=== PATIENT | male | born 1955 | race African-American/Black ===

== ENCOUNTER 2018-01-22 02:01 | Inpatient (IN) | payer OTHER ==
[~2018-01-22] VITALS: Ht 182.9 cm; Wt 115.2 kg
[~2018-01-22 02:01] MED LIST: METF500T4
[2018-01-22] MEDS ORDERED: SODIUM CHLORIDE 0.9% 1,000 ML IV ONE (03:39)
[2018-01-22] MEDS ORDERED: LEVETIRACETAM 1000MG/100ML 100 ML IV ONE (03:45)
[2018-01-22 04:47] LABS: BASOPHILS % 0.4 % (0.0-2.0); EOSINOPHILS % 0.4 % (0.0-5.0); HEMATOCRIT. 41.1 % (42.0-52.0); MEAN CORPUSCULAR HEMOGLOBIN 33.8 pg (28.0-32.0); MEAN PLATELET VOLUME 8.9 fl (7.4-10.4); MONOCYTES % 7.1 % (2.0-8.0); NEUTROPHILS % 74.1 % (40.0-76.0); PLATELET 129 x1000/uL (130-400); RED BLOOD CELL COUNT 4.16 mill/uL (4.7-6.1); RED CELL DISTRIBUTION WIDTH 13.1 % (11.6-14.6)
[2018-01-22 04:48] LABS: CHLORIDE 101 mEq/L (98-107)
[2018-01-22 04:52] LABS: ETHANOL BLOOD < 10 mg/dL
[2018-01-22 05:01] LABS: CREATINE KINASE 125 IU/L (39-308)
[2018-01-22 05:07] LABS: INR 1.2; PROTHROMBIN TIME 12.3 sec (9.4-11.6)
[2018-01-22 05:08] LABS: AMMONIA 45 uMol/L (<32)
[2018-01-22] MEDS ORDERED: SODIUM CHLORIDE 0.9% 1000ML BAG (SEPSIS BOLUS) IV NR (05:15)
[2018-01-22] MEDS ORDERED: LEVOFLOXACIN 750MG PREMIX 150 ML IV NR (05:15)
[2018-01-22 06:44] LABS: CLARITY URINE CLOUDY (CLEAR); COLOR URINE DARK YELLOW (YELLOW); KETONES URINE TRACE (NEGATIVE); LEUKOCYTE ESTERASE URINE 3+ (NEGATIVE); NITRITE URINE POSITIVE (NEGATIVE); OCCULT BLOOD URINE 1+ (NEGATIVE); PROTEIN URINE 1+ (NEGATIVE); SPECIFIC GRAVITY URINE 1.025 (1.005-1.030)
[2018-01-22] MEDS ORDERED: ONDANSETRON HCL 4MG/2ML VIAL IV PRN (07:00)
[2018-01-22] MEDS ORDERED: DIPHENHYDRAMINE 50MG/ML VIAL IV PRN (07:00)
[2018-01-22] MEDS ORDERED: CLONIDINE 0.1MG TABLET PO PRN (07:00)
[2018-01-22] MEDS ORDERED: IPRATROPIUM/ALBUTEROL 0.5-3(2.5)MG/3ML NEB INH PRN (07:00)
[2018-01-22] MEDS ORDERED: DOCUSATE SODIUM 100MG CAPSULE PO PRN (07:00)
[2018-01-22] MEDS ORDERED: NA PHOS,M-B/NA PHOS,DI-BA ENEMA 118ML PR PRN (07:00)
[2018-01-22] MEDS ORDERED: GUAIFENESIN 200MG/10ML SUGAR FREE UDC PO PRN (07:00)
[2018-01-22] MEDS ORDERED: MAGNESIUM/ALUMINUM HYDROXIDE/SIMETHICONE 30ML UDC PO PRN (07:00)
[2018-01-22] MEDS ORDERED: LORAZEPAM 2MG/ML CPJ IV PRN (07:00)
[2018-01-22] MEDS ORDERED: HYDROMORPHONE HCL/PF 2MG/ML CPJ IV PRN (07:00)
[2018-01-22] MEDS ORDERED: HYDROCODONE/ACETAMINOPHEN 5/325MG TABLET PO PRN (07:00)
[2018-01-22] MEDS ORDERED: ACETAMINOPHEN 325MG TABLET PO PRN (07:00)
[2018-01-22 07:08] LABS: *AMPHETAMINES SCREEN URINE NEGATIVE (NEGATIVE); *BARBITURATES SCREEN URINE NEGATIVE (NEGATIVE)
[2018-01-22 07:09] LABS: *BENZODIAZEPINES SCREEN URINE NEGATIVE (NEGATIVE); *COCAINE SCREEN URINE PRESUMTIVE POSITIVE (NEGATIVE); CANNABINOID URINE SCREEN NEGATIVE (NEGATIVE); METHADONE URINE SCREEN NEGATIVE (NEGATIVE); OPIATES URINE SCREEN NEGATIVE (NEGATIVE); PHENCYCLIDINE URINE SCREEN NEGATIVE (NEGATIVE)
[2018-01-22 08:09] LABS: CHLORIDE 105 mEq/L (98-107)
[2018-01-22] MEDS ORDERED: ASPIRIN 81MG EC TABLET PO SCH ×2 (09:00→15:30)
[2018-01-22] MEDS ORDERED: ENOXAPARIN 40MG/0.4ML SYR SUBCUT SCH ×2 (11:00→15:30)
[2018-01-22 15:21] VITALS: BP 110/70
[2018-01-22] MEDS ORDERED: PNEUMOCOCCAL 23-VAL P-SAC VAC 0.5 ML IM ONE (17:00)
[2018-01-22] MEDS: SODIUM CHLORIDE 0.45% 1,000 ML IV SCH (17:09)
[2018-01-22 20:00] VITALS: BP 126/78
[2018-01-23] VITALS: BP 105/70
[2018-01-23] MEDS: SODIUM CHLORIDE 0.45% 1,000 ML IV SCH ×2 (02:58→13:46)
[2018-01-23 06:52] LABS: BASOPHILS % 0.2 % (0.0-2.0); EOSINOPHILS % 1.3 % (0.0-5.0); HEMATOCRIT. 37.1 % (42.0-52.0); HEMOGLOBIN. 12.7 g/dL (14.0-18.0); MEAN CORPUSCULAR HEMOGLOBIN 33.8 pg (28.0-32.0); MEAN CORPUSCULAR VOLUME 98.6 fL (80.0-94.0); MEAN PLATELET VOLUME 8.5 fl (7.4-10.4); MONOCYTES % 7.5 % (2.0-8.0); PLATELET 105 x1000/uL (130-400); RED BLOOD CELL COUNT 3.76 mill/uL (4.7-6.1); RED CELL DISTRIBUTION WIDTH 13.1 % (11.6-14.6)
[2018-01-23 07:17] LABS: CHLORIDE 109 mEq/L (98-107)
[2018-01-23 07:24] LABS: LDL CHOLESTEROL 33 mg/dL (5-100)
[2018-01-23 07:25] LABS: HDL CHOLESTEROL 38 mg/dL (40-59)
[2018-01-23 07:28] LABS: T4 FREE 0.94 ng/dL (0.76-1.46)
[2018-01-23 07:34] VITALS: BP 111/77
[2018-01-23] MEDS: INSULIN LISPRO 100 UNITS/ML SUBCUT SCH ×2 (07:49→12:15)
[2018-01-23 08:00] VITALS: BP 109/71
[2018-01-23] MEDS ORDERED: DEXTROSE 50% WATER 50ML SYRINGE IV PRN (08:00)
[2018-01-23] MEDS: BLOOD SUGAR DIAGNOSTIC STRIP TEST SCH ×2 (08:41→11:59)
[2018-01-23] MEDS ORDERED: ENOXAPARIN 30MG/0.3ML SYR SUBCUT SCH (09:00)
[2018-01-23] MEDS ORDERED: ASPIRIN 81MG EC TABLET PO SCH (09:00)
[2018-01-23 12:00] VITALS: BP 106/67
== END 2018-01-23 15:15 | disposition left against medical advice (07) | DRG 101 ==
LOC: ER 02:01 → 5WST 05:09 → ENRESERV 08:41 → CANRESERV 08:41 → EDBEDREQSVC 09:08 → ENRESERV 13:21
PROVIDERS: ADMIT Internal Medicine; ATTEND Internal Medicine
DX: R56.9 Unspecified convulsions (principal); E11.9 Type 2 diabetes mellitus without complications; E86.0 Dehydration; I10 Essential (primary) hypertension; Z53.21 Procedure and treatment not carried out due to patient leaving prior to being seen by health care provider
CPT/HCPCS: 36415; 70450; 71045; 80048; 80053; 80061; 80305; 81003; 82140; 82550; 82962; 83605; 83690; 83880; 84439; 84443; 84484; 85025; 85610; 87040; 87086; 90732; 93005; 96361; 96365; 96366; 96375; 99285; G0482; J1650; J1953; J1956; J2405; J7030

== ENCOUNTER 2019-03-29 03:36 | Inpatient (IN) | payer OTHER ==
[~2019-03-29] VITALS: Ht 182.9 cm; Wt 114.8 kg
[~2019-03-29 03:36] MED LIST changes: +METF-414; -METF500T4
[2019-03-29] MEDS ORDERED: ONDANSETRON HCL 4MG/2ML INJ IV STA (04:05)
[2019-03-29] MEDS ORDERED: LEVETIRACETAM 500MG PREMIX 100 ML IV ONE (04:15)
[2019-03-29 04:34] LABS: BASOPHILS % 0.4 % (0.0-2.0); EOSINOPHILS % 1.3 % (0.0-5.0); HEMATOCRIT. 40.5 % (42.0-52.0); LYMPHOCYTES % 32.1 % (20.0-50.0); MEAN CORPUSCULAR HEMOGLOBIN 33.9 pg (28.0-32.0); MEAN CORPUSCULAR VOLUME 98.1 fL (80.0-94.0); NEUTROPHILS % 61.2 % (40.0-76.0); PLATELET 122 x1000/uL (130-400); RED BLOOD CELL COUNT 4.13 mill/uL (4.7-6.1); RED CELL DISTRIBUTION WIDTH 14.2 % (11.6-14.6)
[2019-03-29 04:43] LABS: CHLORIDE 102 mEq/L (98-107)
[2019-03-29 04:47] LABS: ETHANOL BLOOD < 10 mg/dL
[2019-03-29 10:20] VITALS: BP 106/65
[2019-03-29] MEDS ORDERED: NA PHOS,M-B/NA PHOS,DI-BA ENEMA 118ML PR PRN (10:45)
[2019-03-29] MEDS ORDERED: GUAIFENESIN 200MG/10ML SUGAR FREE UDC PO PRN (10:45)
[2019-03-29] MEDS ORDERED: HYDRALAZINE 20MG/ML VIAL IV PRN (10:45)
[2019-03-29] MEDS ORDERED: CLONIDINE 0.1MG TABLET PO PRN (10:45)
[2019-03-29] MEDS ORDERED: DIPHENHYDRAMINE 50MG/ML VIAL IV PRN (10:45)
[2019-03-29] MEDS ORDERED: DEXTROSE 50% WATER 50ML SYRINGE IV PRN (10:45)
[2019-03-29] MEDS ORDERED: IPRATROPIUM/ALBUTEROL 0.5-3(2.5)MG/3ML NEB INH PRN (10:45)
[2019-03-29] MEDS ORDERED: MAGNESIUM/ALUMINUM HYDROXIDE/SIMETHICONE 30ML UDC PO PRN (10:45)
[2019-03-29] MEDS ORDERED: HYDROCODONE/ACETAMINOPHEN 10/325MG TABLET PO PRN (10:45)
[2019-03-29] MEDS ORDERED: ONDANSETRON HCL 4MG/2ML INJ IV PRN (10:45)
[2019-03-29] MEDS ORDERED: ACETAMINOPHEN 325MG TABLET PO PRN (10:45)
[2019-03-29] MEDS ORDERED: DOCUSATE SODIUM 100MG CAPSULE PO PRN (10:45)
[2019-03-29] MEDS ORDERED: HYDROMORPHONE HCL/PF 2MG/ML CPJ IV PRN (10:45)
[2019-03-29] MEDS ORDERED: LORAZEPAM 2MG/ML CPJ IV PRN (10:45)
[2019-03-29 11:49] VITALS: BP 116/72
[2019-03-29] MEDS: INSULIN LISPRO 100 UNITS/ML SUBCUT SCH ×3 (11:51→20:55)
[2019-03-29] MEDS: BLOOD SUGAR DIAGNOSTIC STRIP TEST SCH ×3 (11:51→20:55)
[2019-03-29] MEDS: SODIUM CHLORIDE 0.45% 1,000 ML IV SCH (14:05)
[2019-03-29] MEDS: ENOXAPARIN 30MG/0.3ML SYR SUBCUT SCH ×2 (14:05→23:43)
[2019-03-29] MEDS: SODIUM CHLORIDE 0.9% INJ 3ML FLUSH IVF SCH ×2 (14:06→20:56)
[2019-03-29 15:44] VITALS: BP 111/68
[2019-03-29 17:48] LABS: CREATINE KINASE 92 IU/L (39-308); CREATINE KINASE MB FRACTION 1.9 ng/mL (0.5-3.6)
[2019-03-29 20:00] VITALS: BP 99/65
[2019-03-29 20:29] LABS: VITAMIN B12 SERUM 757 pg/mL (211-911)
[2019-03-29] MEDS: LEVETIRACETAM 500MG TABLET PO SCH (21:00)
[2019-03-30] VITALS: BP 99/60
[2019-03-30 00:11] LABS: CREATINE KINASE 88 IU/L (39-308)
[2019-03-30 00:12] LABS: CREATINE KINASE MB FRACTION 1.8 ng/mL (0.5-3.6)
[2019-03-30] MEDS: SODIUM CHLORIDE 0.45% 1,000 ML IV SCH (03:28)
[2019-03-30 04:00] VITALS: BP 113/75
[2019-03-30] MEDS: SODIUM CHLORIDE 0.9% INJ 3ML FLUSH IVF SCH (06:00)
[2019-03-30 06:13] LABS: BASOPHILS % 0.3 % (0.0-2.0); EOSINOPHILS % 1.3 % (0.0-5.0); HEMATOCRIT. 36.3 % (42.0-52.0); HEMOGLOBIN. 12.6 g/dL (14.0-18.0); LYMPHOCYTES % 41.6 % (20.0-50.0); MEAN CORPUSCULAR HEMOGLOBIN 34.2 pg (28.0-32.0); MEAN CORPUSCULAR VOLUME 98.8 fL (80.0-94.0); MEAN PLATELET VOLUME 8.8 fl (7.4-10.4); MONOCYTES % 5.4 % (2.0-8.0); NEUTROPHILS % 51.4 % (40.0-76.0); PLATELET 111 x1000/uL (130-400); RED BLOOD CELL COUNT 3.68 mill/uL (4.7-6.1); RED CELL DISTRIBUTION WIDTH 14.3 % (11.6-14.6)
[2019-03-30 06:34] LABS: CHLORIDE 104 mEq/L (98-107)
[2019-03-30 06:44] LABS: LDL CHOLESTEROL 31 mg/dL (5-100)
[2019-03-30 06:45] LABS: HDL CHOLESTEROL 35 mg/dL (40-59); T4 FREE 0.81 ng/dL (0.76-1.46)
[2019-03-30] MEDS: BLOOD SUGAR DIAGNOSTIC STRIP TEST SCH (07:05)
[2019-03-30] MEDS: INSULIN LISPRO 100 UNITS/ML SUBCUT SCH (07:05)
[2019-03-30 08:11] VITALS: BP 110/72
[2019-03-30] MEDS ORDERED: ASPIRIN 81MG EC TABLET PO SCH (09:00)
[2019-03-30] MEDS: LEVETIRACETAM 500MG TABLET PO SCH (09:05)
[2019-03-30 11:12] VITALS: BP 110/72
== END 2019-03-30 11:20 | disposition home or self-care (01) | DRG 101 ==
LOC: ER 03:36 → 8WST 06:10 → EDBEDREQ 06:12 → EDBEDREQTM 06:12 → ENRESERV 07:03
PROVIDERS: ADMIT Internal Medicine; ATTEND Internal Medicine
DX: G40.409 Other generalized epilepsy and epileptic syndromes, not intractable, without status epilepticus (principal); E87.2 Acidosis; J98.11 Atelectasis; E44.1 Mild protein-calorie malnutrition; R64 Cachexia; I10 Essential (primary) hypertension; E11.9 Type 2 diabetes mellitus without complications; E78.00 Pure hypercholesterolemia, unspecified; E78.5 Hyperlipidemia, unspecified; G51.39 Clonic hemifacial spasm, unspecified; F17.210 Nicotine dependence, cigarettes, uncomplicated; G30.9 Alzheimer's disease, unspecified; F02.80 Dementia in other diseases classified elsewhere, unspecified severity, without behavioral disturbance, psychotic disturbance, mood disturbance, and anxiety; Z68.34 Body mass index [BMI] 34.0-34.9, adult
CPT/HCPCS: 36415; 71045; 80061; 80320; 82550; 82553; 82607; 82962; 83605; 84439; 84443; 84484; 93005; 96365; 96375; 99285; J1650; J1953; J2405; G0480

== ENCOUNTER 2019-06-20 17:15 | Emergency (ER) | payer OTHER ==
[~2019-06-20] VITALS: Ht 182.9 cm; Wt 77.0 kg
[2019-06-20] MEDS ORDERED: KETOROLAC 60MG/2ML VIAL IM STA (21:47)
[2019-06-20 23:13] LABS: BASOPHILS % 0.9 % (0.0-2.0); EOSINOPHILS % 1.1 % (0.0-5.0); HEMATOCRIT. 34.8 % (42.0-52.0); HEMOGLOBIN. 11.6 g/dL (14.0-18.0); LYMPHOCYTES % 39.7 % (20.0-50.0); MEAN CORPUSCULAR HEMOGLOBIN 31.5 pg (28.0-32.0); MEAN CORPUSCULAR VOLUME 94.7 fL (80.0-94.0); MEAN PLATELET VOLUME 8.9 fl (7.4-10.4); MONOCYTES % 5.4 % (2.0-8.0); NEUTROPHILS % 52.9 % (40.0-76.0); PLATELET 201 x1000/uL (130-400); RED BLOOD CELL COUNT 3.68 mill/uL (4.7-6.1); RED CELL DISTRIBUTION WIDTH 14.1 % (11.6-14.6)
[2019-06-20 23:19] LABS: CHLORIDE 106 mEq/L (98-107)
[2019-06-21 00:38] LABS: CLARITY URINE CLEAR (CLEAR); COLOR URINE YELLOW (YELLOW); KETONES URINE NEGATIVE (NEGATIVE); LEUKOCYTE ESTERASE URINE 2+ (NEGATIVE); NITRITE URINE NEGATIVE (NEGATIVE); OCCULT BLOOD URINE NEGATIVE (NEGATIVE); PROTEIN URINE 1+ (NEGATIVE); SPECIFIC GRAVITY URINE 1.012 (1.005-1.030); UROBILINOGEN URINE 0.2 E.U./dL (0.2-1.0)
[2019-06-21 01:14] VITALS: BP 128/74
== END 2019-06-21 01:16 | disposition home or self-care (01) ==
LOC: ER 17:15
DX: M25.551 Pain in right hip (principal); N30.00 Acute cystitis without hematuria; I10 Essential (primary) hypertension; E11.9 Type 2 diabetes mellitus without complications
CPT/HCPCS: 36415; 73502; 80053; 81003; 85025; 87086; 96372; 99284; J1885

== ENCOUNTER 2020-02-28 00:47 | Inpatient (IN) | payer OTHER ==
[~2020-02-28] VITALS: Ht 172.7 cm; Wt 79.4 kg
[2020-02-28] MEDS ORDERED: ACETAMINOPHEN 325MG TABLET PO STA (01:56)
[2020-02-28 03:18] LABS: BASOPHILS % 0.3 % (0.0-2.0); HEMATOCRIT. 28.6 % (42.0-52.0); HEMOGLOBIN. 9.8 g/dL (14.0-18.0); LYMPHOCYTES % 22.3 % (20.0-50.0); MEAN CORPUSCULAR HEMOGLOBIN 34.5 pg (28.0-32.0); MEAN CORPUSCULAR VOLUME 100.5 fL (80.0-94.0); MEAN PLATELET VOLUME 8.7 fl (7.4-10.4); MONOCYTES % 7.3 % (2.0-8.0); NEUTROPHILS % 70.1 % (40.0-76.0); PLATELET 176 x1000/uL (130-400); RED BLOOD CELL COUNT 2.85 mill/uL (4.7-6.1)
[2020-02-28 03:23] LABS: CHLORIDE 107 mEq/L (98-107)
[2020-02-28 03:26] LABS: INR 1.2; PROTHROMBIN TIME 12.8 sec (9.6-11.0)
[2020-02-28 09:45] VITALS: BP 95/62
[2020-02-28 09:46] VITALS: BP 93/77
[2020-02-28] MEDS ORDERED: ACETAMINOPHEN 325MG TABLET PO PRN (10:45)
[2020-02-28] MEDS ORDERED: METOCLOPRAMIDE HCL 10MG/2ML VIAL IV PRN (10:45)
[2020-02-28] MEDS: AZITHROMYCIN 500 MG TABLET PO SCH (11:33)
[2020-02-28] MEDS: ENOXAPARIN 40MG/0.4ML SYR SUBCUT SCH (11:34)
[2020-02-28 12:00] VITALS: BP 89/63
[2020-02-28] MEDS: CEFTRIAXONE 1 G PREMIX 50 ML IV SCH (14:43)
[2020-02-28 16:00] VITALS: BP 86/63
[2020-02-28] MEDS ORDERED: MIDODRINE HCL 5MG TABLET PO SCH (18:45)
[2020-02-28 20:00] VITALS: BP 94/63
[2020-02-29] VITALS (10 sets, daily range): BP systolic 96–114; BP diastolic 63–75
[2020-02-29] MEDS: AZITHROMYCIN 500 MG TABLET PO SCH (08:01)
[2020-02-29] MEDS: ENOXAPARIN 40MG/0.4ML SYR SUBCUT SCH (08:02)
[2020-02-29 08:33] LABS: CLARITY URINE CLEAR (CLEAR); COLOR URINE YELLOW (YELLOW); KETONES URINE NEGATIVE (NEGATIVE); LEUKOCYTE ESTERASE URINE 3+ (NEGATIVE); NITRITE URINE POSITIVE (NEGATIVE); OCCULT BLOOD URINE NEGATIVE (NEGATIVE); PH URINE 6.5 (4.5-8.0); PROTEIN URINE NEGATIVE (NEGATIVE); SPECIFIC GRAVITY URINE 1.006 (1.005-1.030)
[2020-02-29 09:06] LABS: *AMPHETAMINES SCREEN URINE NEGATIVE (NEGATIVE); *BARBITURATES SCREEN URINE NEGATIVE (NEGATIVE); *BENZODIAZEPINES SCREEN URINE NEGATIVE (NEGATIVE); *COCAINE SCREEN URINE NEGATIVE (NEGATIVE)
[2020-02-29 09:07] LABS: CANNABINOID URINE SCREEN NEGATIVE (NEGATIVE); METHADONE URINE SCREEN NEGATIVE (NEGATIVE); OPIATES URINE SCREEN NEGATIVE (NEGATIVE); PHENCYCLIDINE URINE SCREEN NEGATIVE (NEGATIVE)
[2020-02-29] MEDS ORDERED: LEVO500T2 MT (10:49)
[2020-02-29 11:07] LABS: HEMATOCRIT 28.5 % (42.0-52.0); HEMOGLOBIN 9.8 g/dL (14.0-18.0); MEAN CORPUSCULAR VOLUME 101.7 fL (80.0-94.0); PLATELET 158 x1000/uL (130-400)
[2020-02-29 11:22] LABS: CHLORIDE 109 mEq/L (98-107)
[2020-02-29] MEDS: CEFTRIAXONE 1 G PREMIX 50 ML IV SCH (12:37)
== END 2020-02-29 12:45 | disposition home or self-care (01) | DRG 871 ==
LOC: ER 00:55 → 7WST 05:45 → EDBEDREQ 06:12 → EDBEDREQTM 06:12 → ENRESERV 07:40 → ER 08:03 → 3WST 02-29 01:27
PROVIDERS: ADMIT Internal Medicine; ATTEND Internal Medicine
DX: A41.9 Sepsis, unspecified organism (principal); E43 Unspecified severe protein-calorie malnutrition; R57.9 Shock, unspecified; J98.11 Atelectasis; N39.0 Urinary tract infection, site not specified; D64.9 Anemia, unspecified; I10 Essential (primary) hypertension; E11.9 Type 2 diabetes mellitus without complications; F10.10 Alcohol abuse, uncomplicated; Y90.9 Presence of alcohol in blood, level not specified; Z20.828 Contact with and (suspected) exposure to other viral communicable diseases; Z68.26 Body mass index [BMI] 26.0-26.9, adult; Z79.84 Long term (current) use of oral hypoglycemic drugs; Z03.818 Encounter for observation for suspected exposure to other biological agents ruled out
CPT/HCPCS: 36415; 71045; 80048; 80053; 80305; 81003; 82728; 83036; 83605; 84145; 84484; 85025; 85027; 86140; 87077; 87186; 87804; 93005; 99285; J0696; J1650; U0003-CS